=== PATIENT | male | born 1950 | race Two or more races ===

== ENCOUNTER 2018-09-26 12:10 | Outpatient (CLI) | payer MEDICARE ==
[~2018-09-26 12:10] MED LIST: REGADENOSON 0.4 MG/5 ML SYRINGE ONE
== END 2018-09-26 23:59 | disposition home or self-care (01) ==
LOC: CFH 12:10
PROVIDERS: ATTEND Internal Medicine Cardiovascular Disease
DX: I10 Essential (primary) hypertension (principal); Z95.5 Presence of coronary angioplasty implant and graft
CPT/HCPCS: 78452; 93017; A9502; J2785

== ENCOUNTER → 2019-09-05 | Outpatient (CLI) | payer MEDICARE | END | disposition home or self-care (01) | LOC: CVU 07:16 | PROVIDERS: ATTEND Registered Nurse | DX: I51.7 Cardiomegaly (principal); I77.810 Thoracic aortic ectasia; R07.89 Other chest pain; R06.09 Other forms of dyspnea | CPT/HCPCS: 78452; 93017; 93306; A9502; J2785 ==

== ENCOUNTER 2019-10-23 15:01 | Inpatient (IN) | payer MEDICARE ==
[~2019-10-23] VITALS: Ht 188 cm; Wt 107.9 kg
--- NOTE | 2019-10-23 15:10 | NUR ---
Late Entry: Pt BIB [facility] from [facility] for hypotension and a new onset of a fib. Pt went to hospital today for dizziness. Pt placed in gurney, even and unlabored respirations, talking in full sentences no SOB noted, changed into gown, NAD, denies additional needs at time time, given call light, Spencer at bs assessing and discussing plan of care. WCTM
[2019-10-23] MEDS ORDERED: SODIUM CHLORIDE 0.9% 1,000 ML IV ONE (15:11)
[2019-10-23] MEDS ORDERED: SODIUM CHLORIDE FLUSH 10ML SYR IVF ONE (15:30)
[2019-10-23 15:35] LABS: BASOPHILS # (AUTO) 0.03 x10^3/uL (0-0.1); BASOPHILS % (AUTO) 1 % (0-1); EOSINOPHILS % (AUTO) 3 % (1-7); LYMPHOCYTES # (AUTO) 1.54 x10^3/uL (1-3.4); LYMPHOCYTES % (AUTO) 21 % (22-44); MD NO; MEAN CORPUSCULAR HGB CONC 32.7 g/dL (33.2-36.2); MEAN CORPUSCULAR VOLUME 100.9 fL (81-97); MEAN PLATELET VOLUME 7.9 fL (7.4-10.4); MONOCYTES # (AUTO) 0.43 x10^3/uL (0.2-0.8); MONOCYTES % (AUTO) 6 % (2-9); NEUTROPHILS # (AUTO) 5.01 x10^3/uL (1.8-6.8); NEUTROPHILS % (AUTO) 69 % (42-75); PLATELET COUNT 227 x10^3/uL (130-400); RED BLOOD COUNT 4.08 x10^6/uL (4.38-5.82); RED CELL DISTRIBUTION WIDTH 14.7 % (9.4-14.8)
[2019-10-23 15:44] LABS: ALBUMIN 3.7 g/dL (3.4-5.0); ANION GAP 7 mmol/L (5-15); CALCIUM 9.7 mg/dL (8.5-10.1); CHLORIDE 101 mmol/L (98-107); CREATININE 1.41 mg/dL (0.7-1.3)
--- NOTE | 2019-10-23 16:10 | NUR ---
Late Entry: Pt in gurney, even and unlabored respirations, talking in full sentences no SOB noted, given second warm blanket and pillow for comfort, NAD, denies additional needs at time time, call light within reach. WCTM. Waiting for CT read
[2019-10-23] MEDS ORDERED: VALS1TAB29 PO (16:11)
[2019-10-23] MEDS ORDERED: FLUT1BLS3 IH (16:11)
[2019-10-23] MEDS ORDERED: PRIM250T34 PO (16:11)
[2019-10-23] MEDS ORDERED: LOVA40TA2 PO (16:11)
[2019-10-23] MEDS ORDERED: TOPI50TA8 PO (16:11)
[2019-10-23] MEDS ORDERED: OMNIPAQUE 350 MG/ML, 75ML BOTTLE ONE (16:42)
--- NOTE | 2019-10-23 16:56 | NUR ---
Pt in [place], even and unlabored respirations, NAD, denies additional needs at time time, call light within reach. WCTM.
--- NOTE | 2019-10-23 17:40 | NUR ---
Pt resting in gurney, at bedside, NAD, denies additional needs, even and unlabored respirations, WCTM.
[2019-10-23] MEDS: SODIUM CHLORIDE 0.9% 1,000 ML IV SCH (17:58)
[2019-10-23] MEDS ORDERED: BISACODYL 10 MG SUPP PR PRN (18:00)
[2019-10-23] MEDS ORDERED: ONDANSETRON ODT 4 MG PO PRN (18:00)
[2019-10-23] MEDS ORDERED: SODIUM CHLORIDE FLUSH 10ML SYR IVF PRN (18:00)
[2019-10-23] MEDS ORDERED: ACETAMINOPHEN 325 MG TABLET PO PRN (18:00)
[2019-10-23] MEDS ORDERED: POLYETHYLENE GLYCOL 17 GM PACKET PO PRN (18:00)
--- NOTE | 2019-10-23 18:50 | NUR ---
Report to Pa ADAMS, pt denies additional needs, just left bs, pt rtg up to room, NAD, even and unlabored respirations, call light within reach, WCTM.
--- NOTE | 2019-10-23 19:11 | NUR ---
Bedside report to Kenna ADAMS. Pt care transferred at this time.
[2019-10-23 19:36] VITALS: BP_SYST 123; BP_SYST 90; BP_DIAS 57; BP_DIAS 78
[2019-10-23] MEDS: LOVASTATIN 40 MG TABLET PO SCH (20:02)
[2019-10-23] MEDS: TOPIRAMATE 25 MG TABLET PO SCH (20:02)
[2019-10-23] MEDS: PRIMIDONE 250 MG TABLET PO SCH (20:03)
[2019-10-23] MEDS: APIXABAN 5 MG TABLET PO SCH (20:03)
[2019-10-24] VITALS (8 sets, daily range): BP systolic 73–125; BP diastolic 43–74
[2019-10-24 04:38] LABS: BASOPHILS # (AUTO) 0.03 x10^3/uL (0-0.1); BASOPHILS % (AUTO) 1 % (0-1); EOSINOPHILS % (AUTO) 5 % (1-7); LYMPHOCYTES # (AUTO) 1.72 x10^3/uL (1-3.4); LYMPHOCYTES % (AUTO) 28 % (22-44); MD NO; MEAN CORPUSCULAR HEMOGLOBIN 33.6 pg (27.5-34.5); MEAN CORPUSCULAR HGB CONC 33.8 g/dL (33.2-36.2); MEAN CORPUSCULAR VOLUME 99.5 fL (81-97); MEAN PLATELET VOLUME 8.2 fL (7.4-10.4); MONOCYTES % (AUTO) 8 % (2-9); NEUTROPHILS # (AUTO) 3.66 x10^3/uL (1.8-6.8); NEUTROPHILS % (AUTO) 59 % (42-75); PLATELET COUNT 182 x10^3/uL (130-400); RED BLOOD COUNT 3.44 x10^6/uL (4.38-5.82); RED CELL DISTRIBUTION WIDTH 14.4 % (9.4-14.8)
[2019-10-24 04:47] LABS: ANION GAP 6 mmol/L (5-15); CALCIUM 9.2 mg/dL (8.5-10.1); CHLORIDE 104 mmol/L (98-107); CREATININE 1.21 mg/dL (0.7-1.3)
[2019-10-24 04:51] LABS: TROPONIN I < 0.015 ng/mL (0.000-0.045)
[2019-10-24] MEDS: SODIUM CHLORIDE 0.9% 1,000 ML IV SCH ×3 (04:57→20:33)
[2019-10-24] MEDS: APIXABAN 5 MG TABLET PO SCH ×2 (07:43→20:34)
[2019-10-24] MEDS: TOPIRAMATE 25 MG TABLET PO SCH ×2 (07:44→20:34)
[2019-10-24] MEDS: SENNA/DOCUSATE TABLET PO SCH (07:44)
[2019-10-24] MEDS: PRIMIDONE 250 MG TABLET PO SCH ×2 (07:44→20:33)
[2019-10-24] MEDS: TEMPLATE NON-FORMULARY MED. (Fluticasone/Umeclidin/Vilanter (Trelegy Ellipta 100-62.5-25 INH SCH (07:59)
[2019-10-24 11:32] LABS: TROPONIN I < 0.015 ng/mL (0.000-0.045)
[2019-10-24] MEDS: LOVASTATIN 40 MG TABLET PO SCH (20:33)
[2019-10-25] VITALS (10 sets, daily range): BP systolic 96–131; BP diastolic 58–82
[2019-10-25 05:08] LABS: BASOPHILS # (AUTO) 0.02 x10^3/uL (0-0.1); BASOPHILS % (AUTO) 0 % (0-1); EOSINOPHILS # (AUTO) 0.37 x10^3/uL (0-0.4); EOSINOPHILS % (AUTO) 6 % (1-7); LYMPHOCYTES # (AUTO) 1.57 x10^3/uL (1-3.4); LYMPHOCYTES % (AUTO) 26 % (22-44); MD NO; MEAN CORPUSCULAR HEMOGLOBIN 33.6 pg (27.5-34.5); MEAN CORPUSCULAR HGB CONC 33.8 g/dL (33.2-36.2); MEAN CORPUSCULAR VOLUME 99.5 fL (81-97); MONOCYTES # (AUTO) 0.45 x10^3/uL (0.2-0.8); MONOCYTES % (AUTO) 8 % (2-9); NEUTROPHILS # (AUTO) 3.63 x10^3/uL (1.8-6.8); NEUTROPHILS % (AUTO) 60 % (42-75); PLATELET COUNT 166 x10^3/uL (130-400); RED BLOOD COUNT 3.28 x10^6/uL (4.38-5.82); RED CELL DISTRIBUTION WIDTH 14.4 % (9.4-14.8)
[2019-10-25 05:17] LABS: ANION GAP 6 mmol/L (5-15); CALCIUM 8.6 mg/dL (8.5-10.1); CHLORIDE 107 mmol/L (98-107); CREATININE 0.87 mg/dL (0.7-1.3)
[2019-10-25] MEDS ORDERED: MAGNESIUM SULFATE PMX 2GM/50ML 50 ML IV ONE (07:00)
[2019-10-25] MEDS: APIXABAN 5 MG TABLET PO SCH ×2 (08:28→22:14)
[2019-10-25] MEDS: PRIMIDONE 250 MG TABLET PO SCH ×2 (08:29→22:14)
[2019-10-25] MEDS: SENNA/DOCUSATE TABLET PO SCH (08:30)
[2019-10-25] MEDS: TOPIRAMATE 25 MG TABLET PO SCH (08:31)
[2019-10-25] MEDS: TEMPLATE NON-FORMULARY MED. (Fluticasone/Umeclidin/Vilanter (Trelegy Ellipta 100-62.5-25 INH SCH (08:31)
[2019-10-25] MEDS: LOVASTATIN 40 MG TABLET PO SCH (22:14)
[2019-10-26 01:08] VITALS: BP 117/68
[2019-10-26 04:58] LABS: ANION GAP 5 mmol/L (5-15); CALCIUM 8.8 mg/dL (8.5-10.1); CHLORIDE 108 mmol/L (98-107); CREATININE 0.86 mg/dL (0.7-1.3)
[2019-10-26 06:25] VITALS: BP 120/62
[2019-10-26] MEDS: SENNA/DOCUSATE TABLET PO SCH (07:43)
[2019-10-26] MEDS: TEMPLATE NON-FORMULARY MED. (Fluticasone/Umeclidin/Vilanter (Trelegy Ellipta 100-62.5-25 INH SCH (07:43)
[2019-10-26] MEDS: APIXABAN 5 MG TABLET PO SCH (08:24)
[2019-10-26] MEDS: PRIMIDONE 250 MG TABLET PO SCH (08:24)
[2019-10-26] MEDS ORDERED: APIX5TAB PO (09:35)
[2019-10-26 12:54] VITALS: BP 149/83
== END 2019-10-26 14:05 | disposition home or self-care (01) | DRG 308 ==
LOC: ED 15:47 → EDIP 17:36 → 5SO 19:18
PROVIDERS: ADMIT Internal Medicine; ATTEND Internal Medicine
DX: I48.91 Unspecified atrial fibrillation (principal); N17.0 Acute kidney failure with tubular necrosis; J96.10 Chronic respiratory failure, unspecified whether with hypoxia or hypercapnia; D68.69 Other thrombophilia; E87.1 Hypo-osmolality and hyponatremia; I25.10 Atherosclerotic heart disease of native coronary artery without angina pectoris; I50.812 Chronic right heart failure; I11.0 Hypertensive heart disease with heart failure; D75.89 Other specified diseases of blood and blood-forming organs; R00.1 Bradycardia, unspecified; E86.0 Dehydration; D63.8 Anemia in other chronic diseases classified elsewhere; J44.9 Chronic obstructive pulmonary disease, unspecified; E78.5 Hyperlipidemia, unspecified; Z87.891 Personal history of nicotine dependence; Z72.89 Other problems related to lifestyle; Z95.5 Presence of coronary angioplasty implant and graft; Z90.49 Acquired absence of other specified parts of digestive tract; Z79.899 Other long term (current) drug therapy
CPT/HCPCS: 36415; 71275; 80048; 82040; 82607; 82728; 83540; 83550; 83735; 84100; 84443; 84484; 85025; 93005; 99285; G0378; Q9967; J3475; J7030